=== PATIENT | male | born 1950 | race Caucasian/White ===

== ENCOUNTER → 2021-01-20 13:25 | Outpatient (CLI) | payer MEDICARE, OTHER, SELFPAY ==
--- NOTE | 2021-01-20 | DI.CT.S_ITS ---
PROCEDURE: CT UE LT WO CON INDICATIONS: pain TECHNIQUE: Noncontrast 1-1.5 mm thick sections acquired from the acromioclavicular joint to the inferior scapula, with coronal and sagittal reformatting. COMPARISON: [facility], CR, XR SHOULDER 2+ VIEWS BILATERAL, 12/22/2020, 13:49. FINDINGS: Image quality: Excellent. Bones: No acute osseous fracture or dislocation. Severe degenerative changes are seen at the glenohumeral joint with full-thickness joint space narrowing, subchondral cystic changes, and marginal osteophyte formation. There is remodeling of the glenoid articular surface resulting in approximately 13 degrees of glenoid retroversion relative to the midplane of the scapula at the mid glenoid level. Mild to moderate degenerative changes are seen in the acromioclavicular joint. Degenerative changes are partially imaged in the spine. The visualized ribs are intact. Soft tissues: The rotator cuff musculature is normal in bulk. No large full-thickness retracted rotator cuff tendon tear is seen, although the tendons, ligaments, articular cartilages, and labrum are not well evaluated with CT. Of the included portion of the left lung is clear. IMPRESSION: 1. Severe glenohumeral osteoarthrosis as described above with remodeling of the posterior glenoid resulting in approximately 13 degrees glenoid retroversion relative to the midplane of the scapula at the mid glenoid level. 2. Mild to moderate acromioclavicular osteoarthrosis. Dictated by: Nile Barragan M.D. on 01/20/2021 at 14:10 Approved by: Nile Barragan M.D. on 01/20/2021 at 14:16
== END ==
PROVIDERS: PCP Physician Assistant Medical; Referring Provider Orthopaedic Surgery; Visit Provider Orthopaedic Surgery
DX: M19.012 Primary osteoarthritis, left shoulder (principal); M25.512 Pain in left shoulder
CPT/HCPCS: 73200

== ENCOUNTER → 2021-04-01 08:41 | Outpatient (CLI) | payer MEDICARE, OTHER, SELFPAY ==
[2021-04-01 14:47] LABS: COVID19 -Nasal RAPID Negative (Negative)
== END ==
PROVIDERS: PCP Physician Assistant Medical; Visit Provider Physician Assistant
DX: Z01.812 Encounter for preprocedural laboratory examination (principal); Z20.822 Contact with and (suspected) exposure to COVID-19
CPT/HCPCS: 87635; C9803

== ENCOUNTER 2021-04-02 06:18 | Inpatient (IN) | payer MEDICARE, OTHER, SELFPAY ==
[2021-03-25 12:33] VITALS: BMI 27.6
[2021-04-02] VITALS (13 sets, daily range): BP systolic 99–142; BP diastolic 61–94; PULSE 72–103; RESP 9–18; TEMP 36.1–37; O2SAT 92–96; BMI 27.6
--- NOTE | 2021-04-02 06:00 | DI.RAD.S_ITS ---
PROCEDURE: XR SHOULDER LT MIN 2V INDICATIONS: postop prosthesis placement TECHNIQUE: 2 views of the shoulder were acquired. COMPARISON: None. FINDINGS: Bones: Left shoulder hemiarthroplasty noted with intra-articular drain and overlying subcutaneous air. Prosthetic component in good position. Soft tissues: No suspicious soft tissue calcifications. IMPRESSION: Left shoulder hemiarthroplasty postoperative changes Approved by: Stan Jansen M.D. on 04/02/2021 at 12:06
[2021-04-02] MEDS: VANCOMYCIN 1,000 MG/200 ML PIGGYBACK 200 MG IV ×2 (06:59→19:13)
[2021-04-02] MEDS: CELECOXIB 200 MG CAPSULE PO (07:03)
[2021-04-02] MEDS: ACETAMINOPHEN 325 MG TABLET 975 MG PO ×2 (07:03→22:20)
[2021-04-02] MEDS: PREGABALIN 75 MG CAPSULE PO (07:06)
[2021-04-02] MEDS: LACTATED RINGERS 1,000 ML 42 ML IV ×2 (07:15→09:45)
--- NOTE | 2021-04-02 07:34 | PM.PREOP ---
Pre-operative Note Interval Note History & Physical reviewed/Exam performed by Physician: Yes Changes to H&P: No
--- NOTE | 2021-04-02 07:36 | PM.HP.1 ---
History of Present Illness History of Present Illness Date Patient Seen: 04/02/21 Time Patient Seen: 07:37 Chief complaint: Left Total Shoulder Arthroplasty *OPB* Narrative: 70-year-old gentleman with end-stage arthritic changes to the left shoulder joint causing pain and dysfunction it has been unresponsive to conservative treatment. Due to this fact, patient is interested in total shoulder arthroplasty. Patient History Medical History Arthritis Easy bruisability Fatigue HLD (hyperlipidemia) HTN (hypertension) Kidney stones Obstructive sleep apnea of adult Osteoarthritis Pre-diabetes Snoring Surgical History History of total left hip arthroplasty (2015) History of total right hip arthroplasty (2008) History of vasectomy Hx of appendectomy Hx of cholecystectomy Family & Social History Social History: household members spouse Prior Living Arrangements House Safety & Behavioral: Feels Safe in Current Yes Environment Been Physically Hurt or No Threatened By a Person Suicidal Ideation Description None Suicide Plan Description No Plan Tobacco & Substance use: Smoking Status Never smoker alcohol intake current alcohol intake frequency a few times a month Substance Use Type does not use Meds Home Medications and Allergies Home Medications Medication Instructions Recorded Confirmed Type amlodipine 5 mg tablet 5 mg PO DAILY 11/23/18 04/02/21 History fluticasone propionate 50 2 spray NASAL BID 11/23/18 04/02/21 History mcg/actuation nasal spray,suspension (Allergy Relief (fluticasone)) hydrochlorothiazide 25 mg tablet 25 mg PO DAILY 11/23/18 04/02/21 History loratadine 10 mg capsule 10 mg PO DAILY 11/23/18 04/02/21 History meloxicam 15 mg tablet 15 mg PO BEDTIME 11/23/18 04/02/21 History oqwvvmt-jtjaiftblyfye-hbfnmdlp 250 1 tab PO DAILY PRN 03/25/21 04/02/21 History mg-250 mg-65 mg tablet (Excedrin Extra Strength) atorvastatin 10 mg tablet 10 mg PO BEDTIME 03/25/21 04/02/21 History ezetimibe 10 mg tablet 10 mg PO BEDTIME 03/25/21 04/02/21 History famotidine 20 mg tablet 20 mg PO DAILY 03/25/21 04/02/21 History Allergies Allergy/AdvReac Type Severity Reaction Status Date / Time Ampicillin Allergy Mild Rash Uncoded 03/25/21 13:14 Exam Vital Signs (past 8 hours): - 04/02/21 07:15 Temperature 98.6 F Pulse Rate 72 Respiratory Rate 16 Blood Pressure 139/94 H Pulse Oximetry 96 Oxygen Delivery Method Room Air Narrative Exam Narrative: Decreased range of motion to the left glenohumeral joint with difficulty going 90? of forward flexion and abduction. 15? of external rotation internal rotation to the back pocket. Quite a bit of crepitus with range of motion. No sign of any shoulder instability. No sign of any rotator cuff dysfunction. Assessment & Plan Assessment & Plan narrative: End-stage arthritis to the left shoulder unresponsive to conservative treatment. Patient is interested in proceeding with a total shoulder Arthroplasty. The risk, benefits, alternatives, possible complications, operative course, and postop outcomes were discussed. Complications including but not limiting to bleeding, infection, fracture, nerve injury, continued pain postoperatively or instability postoperatively were discussed in detail. Medical complications including but not limited to deep venous thrombosis event, anesthesia complications with excessive bleeding, vascular events or cardiac events and other possible complications were discussed in detail. Need for postoperative rehabilitation and anticipated hospital stay and clinical course were discussed in detail. Patient acknowledges understanding and elects to proceed with surgery. Time Spent With Patient Critical Care time: I spent a total of [] minutes of critical care time on this patient's care today; this time is exclusive of procedural time.
--- NOTE | 2021-04-02 08:03 | SUR.PREOP ---
Block start time 0741 . Monitoring initiated and maintained throughout procedure. Oxygen and medications given by Dr Garza. Patient remained stable throughout procedure, no adverse reactions noted. Block end time 0750.
--- NOTE | 2021-04-02 08:23 | PM.PROC.1 ---
Procedures Date/Time Date of procedure: 04/02/21 Time of procedure: 07:40 General Procedure description: Ultrasound guided interscalene brachial plexus nerve block for post op pain control after left total shoulder arthroplasty by Dr. Celeste. Risk and benefits of procedure discussed with patient. ASA monitoring applied to patient. O2 given via nasal cannula. 2 mg Versed and 50 mcg fentanyl given for procedural sedation. Skin site was prepped with chlorhexidine and allowed to fully dry. Sterile gloves, mask, hat and probe cover were used to maintain sterility. 2% lidocaine and 30ga needle was used to make a small skin wheal at needle insertion site. Under ultrasound guidance, a 21ga 50mm Pajunk needle was directed into the interscalene groove (middle/anterior scalenes) near the brachial plexus. Patient reported no parasthesias. After negative aspiration, 20 mL 0.5% ropivicaine and 10mg dexamethasone were injected around brachial plexus. Patient tolerated procedure well.
--- NOTE | 2021-04-02 08:29 | SUR.OPER ---
Beach chair with Maquet shoulder positioner. Lower body on padded OR bed. Head in foam padded head cradle, secured with straps. Non-operative arm secured <90 degrees abduction. Pillow under knees. Safety belt at thigh. Cloth tape over blanket over lower legs.
--- NOTE | 2021-04-02 10:13 | P.OP_ITS ---
Operative Date/Time/Diagnoses Date of procedure: 04/02/21 Time of procedure: 10:13 Pre-op diagnosis: Left shoulder arthritis Post-op diagnosis: same Procedure & Clinicians Procedure: Left total shoulder arthroplasty Same procedure as scheduled: Yes Indications: End-stage arthritis left shoulder Surgeon: Eugenio Celeste Retail Sales Assistant: Olivia Beltran Anesthesia Type: General and Peripheral nerve block Operative Notes Findings: end-stage arthritic changes to the glenohumeral joint with no sign of any rotator cuff tearing. Inferior and anterior osteophytes. Complete loss of cartilage around the glenoid and the humerus. No sign of any significant flattening of the humeral head. Some mild posterior wear to the glenoid. Closure Type: primary Specimen(s): none sent Applied: drain(s) and implant(s) (Size 11 stem large glenoid 56 x 22 head) Estimated Blood Loss (mL): 150 Procedure in detail: On date of service, Patient was met in the holding area. The operative site was signed and witnessed by the OR staff. The surgeries once again discussed with the patient and any remaining questions they had were answered fully. Patient was taken back to the operating theater and placed on the operating table in a supine position. Great care was taken to ensure that all bony prominences were properly padded. Patient was then placed into the beach chair position. The head and neck were properly positioned and secured. A timeout was performed verifying patient's name, procedure, and the operative site. The upper extremity was then prepped and draped in the normal sterile fashion. Previously, the bony anatomy and incision were marked out as well as injected with Marcaine with epinephrine. A deltopectoral approach was performed. 10 blade was used to incise the skin and fascial tissue. A deep knife was used to continue sharp dissection until the cephalic vein was visualized. The cephalic vein was dissected free allowing us to expose the deltopectoral interval. This interval was then developed. A Ball elevator was used to free up the deltoid of any scarring both superficially as well as deeply. The vein and the deltoid were taken laterally while the pectoralis was taken medially. This gave us good visualization of the strap muscles. The clavipectoral fascia was removed and the strap muscles were then retracted medially with the pectoralis. This gave us stabilization of the subscapularis. The circumflex vessels were ligated and the subscapularis was sharply excised off the lesser tuberosity and then tagged. Once the subscapularis was released we're able to dislocate the shoulder. Patient had end-stage arthritic changes to the humeral head as well as the glenoid with large osteophytes anterior inferiorly as well as posteriorly. A Ronger was then used to remove the osteophytes. Next, cutting guide was placed and a saw was used to remove the humeral head. Once the head was removed it was templated. A starting awl was then used to find the canal and then the humerus was reamed and broached. Trial stem was placed and a variety of heads were trialed. A protector placed for the osteotomy was then placed and and we turned our attention back to the subscapularis as well as the glenoid. The subscapularis was freed up and a 360? fashion. The degenerative anterior and inferior capsular tissue was removed. This was followed by removing the degenerative labral tissue from around the glenoid as well as the biceps insertion. This gave us good visualization of the glenoid. Glenoid trials were used until we found the appropriate fit and curvature. Next the center hole was drilled followed by reaming of the glenoid. The wound was copiously irrigated after reaming. Next the pegs were drilled and a trial glenoid was impacted into place. Once we were satisfied with the preparation of the glenoid, the final component was cemented into place. This was followed by impaction. We Return to our attention back to the humerus. The protector plate was removed and heads were trialed once again and so we found the appropriate fit. The trials were removed and bone tunnels were made into the humeral neck. #2 FiberWire were passed through the bone tunnels for eventual subscapularis repair. The final stem and head were impacted into place and the shoulder was reduced. It was taken through range of motion and was felt to be stable in both posterior translation as well as external and internal rotation with abduction. The subscapularis was repaired back to the lesser tuberosity through the bone tunnels. This was then reinforced with soft tissue repair. Part of the rotator interval was then closed. A drain was placed and the rest of the wound was closed in a layered fashion. The shoulder was then cleaned dried and dressed and the patient was taken to the PACU in stable condition. Patient will follow our postoperative protocol for total shoulder arthroplasty. Complications: none Post-operative Condition: stable Disposition: Acute Care Plan for aftercare: Patient will be admitted overnight. As long as he is comfortable enough he can go home after surgery.
--- NOTE | 2021-04-02 10:49 | SUR.PHASEI ---
Ancef not given pre-op per Dr Packer. See other anbx
[2021-04-02] MEDS: LACTATED RINGERS 1,000 ML 125 ML IV ×2 (11:43→19:12)
--- NOTE | 2021-04-02 14:17 | PT.IIE ---
Current Diagnoses Pain in right shoulder (04/02/21) Surgery Performed Operation Date: 04/02/21 07:45 Actual Procedures p Total Shoulder Arthroplasty(Left) - Eugenio Celeste MD Medical History (Last Reviewed 04/02/21 @ 07:37 by Eugenio Celeste MD) Arthritis Easy bruisability Fatigue HLD (hyperlipidemia) HTN (hypertension) Kidney stones Obstructive sleep apnea of adult Osteoarthritis Pre-diabetes Snoring Physical Therapy Inpatient Evaluation/Re-Eval M1 PT/OT-IP Prior Functional Status Start: 04/02/21 14:01 Freq: Status: Active Protocol: Document 04/02/21 13:17 MB (Rec: 04/02/21 14:17 MB [id number]) Medical Review Prior Functional Status Medical History Reviewed Yes Diet/Fluid Consistency Regular Communication WNLs Mobility and Gait I, retired Activities of Daily Living and IADL's I Prior Functional Level (Other details) I Social History Household Members spouse Living Arrangements House Number of Floors (Floors) One Floor Employment Status Retired M2 PT-IP Current Condition Start: 04/02/21 14:01 Freq: Status: Active Protocol: Document 04/02/21 13:17 MB (Rec: 04/02/21 14:16 MB [id number]) Physical Therapy Current Condition Current Condition Evaluation Date 04/02/21 Treatment Diagnosis L TSR 04/02/21 Precautions Shoulder Precautions Sling,Pendulums Other Precautions Pt s/p left TSR and provided [facility] Protocol, no pendulums today d/t shoulder still non-sensate, hand exercises only and did demo pendulum, scapular retraction, elbow flexion, extension, pronation and supination Weight Bearing Status Weight Bearing Status Non-Weight Bearing M3 PT-IP Subjective Start: 04/02/21 14:01 Freq: Status: Active Protocol: Document 04/02/21 13:17 MB (Rec: 04/02/21 14:16 MB [id number]) Subjective Physical Therapy Visit Type Type Initial Evaluation Visit Start Time 13:17 Visit Stop Time 13:55 Total Visit Minutes 38 Physical Therapy Visit Comments Patient Goals To go home tomorrow Therapy Pain Assessment Pain Present Pain Present Denied Pain M4 PT-IP Mobility and Gait Start: 04/02/21 14:01 Freq: Status: Active Protocol: Document 04/02/21 13:17 MB (Rec: 04/02/21 14:16 MB [id number]) PT-Bed Mobility Assessment Rolling Type of Rolling Roll to Right Level of Assist Independent Supine to Sit Supine to Sit Independent,Head of Bed Elevated,Bedrails Scooting Scooting to Edge of Bed Standby Assistance PT-Transfer Assessment Sit to and From Stand Sit to and from Stand Contact Guard Assistance Transfer Ability Level of Assist Standby Assistance Comments Mobility Comments L sling donned, SBA for transfer to check to see if pt is dizzy and to check BP and HR. Pt is tachycardic with HR up to 119 BPM before gait and after first gait set BP and HR in right UE: supine 109/65, 95; standing 114/80, 112; standing 1' 111/59, 119. Gait Assessment Gait Gait Assistance Required: Standby Assistance Distance (Feet) 150 Assistive Devices Assistive Device None Gait Deviations General Gait Pattern Within Normal Limits,Wide Based Gait Factors Limiting Gait Function Factors Limiting Gait Function Poor Balance Comments Gait Comments Initally, gait with wide ADOLFO, mild imbalance. After 150' gait with PT pushing IV pole, his balance improves and PT and nsg clear pt to walk pushing the IV pole in the hallway and with nearby. Left sling is donned. His олег increases with increased gait distance. Stair Climbing Assessment Evaluation Level of Assist On Stairs Contact Guard Assistance Devices Stair Climbing Assistive Devices None,Right Railing Technique/Endurance Stair Climbing Direction Ascend and Descend Stair Climbing Technique Step Over Step,Step to Step Number of Steps Climbed 3 Query Text: Stair Climbing Set # Repetitions (reps) 2 Comments Stair Climbing Comments First set, step to step and right rail ascend. Next set, step over step and right rail PT-Balance Assessment Sitting Balance and Reactions Static Sitting Balance Ability Good Dynamic Sitting Balance Ability Good Standing Balance and Reactions Static Standing Balance Ability Good Dynamic Standing Balance Ability Good M5 PT-IP Objective Assessments Start: 04/02/21 14:01 Freq: Status: Active Protocol: Document 04/02/21 13:17 MB (Rec: 04/02/21 14:16 MB [id number]) Orientation Orientation/Cognition Level of Alertness Alert Orientation Name,Age,Birthday,Month,Date, Year,Day of Week,Place, Situation Language Function Ability No Deficits Noted Safety Awareness Understands Safety Issues Memory Description No Deficits Noted Gross Range of Motion Upper Extremity ROM Assessment Bilaterally Impaired Impairments L arm in sling s/p surgery today. No active left elbow flexion, extension, supination or pronation when asked. He has numbness in index finger and thumb. End-range AROM deficits right shoulder, pt with known OA and needing right TSR as well. He is right hand dominant. Lower Extremity ROM Assessment Within Functional Limits Strength Comments Strength Comments Deferred MMT today given multiple lines right UE and left UE just operated upon Sensation Assessment Comments Sensation Comments Numbness right fingers as described above M6 PT-IP Treatment Start: 04/02/21 14:01 Freq: Status: Active Protocol: Document 04/02/21 13:17 MB (Rec: 04/02/21 14:16 MB [id number]) Physical Therapy Treatment Exercises Exercises Shoulder Pendulums,Elbow Flexion/Extension,Wrist ROM, Hand ROM Education Education Provided Precautions,Weight Bearing Status,Post-Op Packet,Safety M7 PT-IP Assessment and Plan Start: 04/02/21 14:01 Freq: Status: Active Protocol: Document 04/02/21 13:17 MB (Rec: 04/02/21 14:16 MB [id number]) PT Summary Assessment and Plan Potential Rehabilitation Potential Excellent Status of Condition at Evaluation Stable Summary Impairments ROM,Strength,Sensation,Bed Mobility,Transfers,Gait Progress Towards Goals Progressing Toward Goals Assessment Summary Pt is a 70 y/o male post-op left TSR today. He is wearing the sling in bed and PT makes sure it is fastened before gait. His is tachycardic today and PT reports this to nursing. His bed, transfer and gait mobility are good. He con't with left shoulder numbness and finger paresthesias post-op. He will benefit from 1 more PT treatment to review post-op exercises again once his left arm is more sensate next date. Nsg cleared him to be up walking with IV pole in hospital. Balance testing if needed tomorrow. Goals Bed Mobility Goal Independent Transfer Goal Independent Gait Goal Independent Gait Distance 200 Other Goals Demo left TSR exercises with I Frequency of Treatment Frequency Of Treatment Once a Day Treatment Plan Physical Therapy Treatment Plan Bed Mobility Training,Transfer Training,Gait Training, Therapeutic Exercise,Balance Retraining,Post Op Education, Discharge Planning, Neuromuscular Re-ed Precautions Shoulder Precautions Sling,Pendulums Recommendations To Nursing Amount of Assist Needed Standby Assistance Discharge Recommendations PT Discharge Recommendations Home with Assistance, Outpatient PT Other Discharge Recommendations He is scheduled for OPPT with [facility] in [place] Transportation Needs at Discharge Private Vehicle
[2021-04-02] MEDS: INFLUENZA HD VACCINE 0.7 ML SYRINGE IM (14:25)
[2021-04-02] MEDS: EZETIMIBE 10 MG TABLET PO (20:56)
[2021-04-02] MEDS: ATORVASTATIN 20 MG TABLET 10 MG PO (20:57)
[2021-04-02] MEDS: MELOXICAM 7.5 MG TABLET 15 MG PO (20:57)
[2021-04-02] MEDS: DOCUSATE 100 MG CAPSULE PO (20:58)
[2021-04-02] MEDS: FLUTICASONE 120 SPRAY/16 GM SPRAY.SUSP NASAL (20:59)
--- NOTE | 2021-04-03 00:43 | PC.NURSE ---
Patient is alert and oriented. Breath sounds CTA with RA sat of 95%. HRR. Denied nausea. BT hypoactive but states he has passed flatus. Denied dysuria, frequency or urgency with urination. Is independent with mobility. Aquacel dressing to left shoulder is intact with small spot of drainage noted; hemovac is intact and compressed. Does have some bruising medial to dressing. States he still has some numbness in fingers of left hand as well as upper/lower arm; good radial pulse and capillary refill. Denied pain. Is wearing a sling to left UE. Bilateral calf SCD's applied once back in bed. Fall risk score is low.
[2021-04-03] MEDS: HYDROCODONE/ACET 5/325 TABLET 2 TAB PO ×2 (04:49→09:04)
[2021-04-03 04:55] VITALS: BP 110/70; PULSE 80; RESP 18; TEMP 36.5; O2SAT 93
[2021-04-03 05:57] LABS: Hematocrit 35.6 % (41-53); Hemoglobin 11.9 g/dL (13.5-17.5); Mean Corpuscular HGB Conc 33.3 % (30-36); Mean Corpuscular Hemoglobin 30.5 PG (26-34); Mean Corpuscular Volume 91.4 fL (80-100); Platelet Count 185 X10^3/uL (150-400); Red Cell Distribution Width 13.8 % (11.6-14.8); White Blood Cell Count 16.2 X10^3/uL (4.5-11.0)
[2021-04-03 08:00] VITALS: BP 115/79; PULSE 84; RESP 16; TEMP 36.2; O2SAT 93
--- NOTE | 2021-04-03 08:17 | PT.IPTN ---
Current Diagnoses Pain in right shoulder (04/02/21) Surgery Performed Operation Date: 04/02/21 07:45 Actual Procedures p Total Shoulder Arthroplasty(Left) - Eugenio Celeste MD Physical Therapy Treatment Note M2 PT-IP Current Condition Start: 04/02/21 14:01 Freq: Status: Active Protocol: Document 04/02/21 13:17 MB (Rec: 04/02/21 14:16 MB [id number]) Physical Therapy Current Condition Current Condition Evaluation Date 04/02/21 Treatment Diagnosis L TSR 04/02/21 Precautions Shoulder Precautions Sling,Pendulums Other Precautions Pt s/p left TSR and provided [facility] Protocol, no pendulums today d/t shoulder still non-sensate, hand exercises only and did demo pendulum, scapular retraction, elbow flexion, extension, pronation and supination Weight Bearing Status Weight Bearing Status Non-Weight Bearing M3 PT-IP Subjective Start: 04/02/21 14:01 Freq: Status: Active Protocol: Document 04/03/21 07:47 SP (Rec: 04/03/21 09:32 SP [id number]) Subjective Physical Therapy Visit Type Type Treatment Note Visit Start Time 07:47 Visit Stop Time 08:17 Total Visit Minutes 30 Notes Vitals taken during tx: supine: 105/74 HR 74 SaO2 93% on RA seated at EOB: 115/79 HR 84 standing front chair post mobility hallway: 111/64 HR 83 , SaO2 88%>93% with breath ed on RA. Number of DIRECTOR OF CLINICAL EDUCATION Visits 1 Physical Therapy Visit Comments Patient Comments Pt willing to work with therapy. Patient Goals Return home with to assist him as needed. Therapy Pain Assessment Pain When Pain Assessed During Mobility Pain Present Pain Present Pain Reported Location L shld Intensity 4 Scale Used Numeric (0 - 10) Description Aching,Tender,With Movement Pain Management Techniques Apply Cold,Re-positioning, Timing of Activity with Medications M4 PT-IP Mobility and Gait Start: 04/02/21 14:01 Freq: Status: Active Protocol: Document 04/03/21 07:47 SP (Rec: 04/03/21 09:32 SP [id number]) PT-Bed Mobility Assessment Supine to Sit Supine to Sit Independent Scooting Scooting to Edge of Bed Independent PT-Transfer Assessment Sit to and From Stand Sit to and from Stand Independent Equipment Orthotic/Prosthetic Devices or Brace: Yes Transfers Transfer Destination Chair Transfer Technique Pt ambulated without AD Transfer Ability Level of Assist Independent Comments Mobility Comments Pt is wearing the sling in bed when arrived. I in bed mobility sup>sit, scoot to EOB . Reviewed don/doff sling and post op ex seated at EOB. Progressed dynamic gait (see gait details) without AD into hallway around nursing station , ascend/descend stairs for approx 230 ft total I without deviations or LOB. Assessed dynamic stationary balance: SLS, tandem EC stable no LOB. DIRECTOR OF CLINICAL EDUCATION identified pt I within facility without AD. Pt is ok to return home with to assist him if needed when medically cleared. Is already set up with outpt therapy. Gait Assessment Gait Gait Assistance Required: Independent Distance (Feet) 230 Able to Maintain Weight Bearing Status Yes During Gait Assistive Devices Assistive Device None Orthotic/Prosthetic Devices or Brace: Yes Gait Deviations General Gait Pattern Within Normal Limits Factors Limiting Gait Function Factors Limiting Gait Function Respiratory Distress Comments Gait Comments Pt normalized ADOLFO during gait this tx 230 ft total in room and progressed around nursing station with no AD able to complete head turns without deviations I. Stair Climbing Assessment Evaluation Level of Assist On Stairs Standby Assistance Devices Stair Climbing Assistive Devices None,Right Railing Technique/Endurance Stair Climbing Direction Ascend and Descend Stair Climbing Technique Step Over Step,Step to Step Number of Steps Climbed 3 Stair Climbing Set # Repetitions (reps) 1 Comments Stair Climbing Comments Receiprocal gait, stable. PT-Balance Assessment Sitting Balance and Reactions Static Sitting Balance Ability Normal Dynamic Sitting Balance Ability Normal Standing Balance and Reactions Static Standing Balance Ability Normal Dynamic Standing Balance Ability Good Device Used no AD Balance Tests Single Limb Standing 30 sec each LE Romberg NBOS and tandem 30sec EC Comments Other Balance Tests/Deviations/Treatment SLS initially 3sec, 7 sec then : progressed 30sec each LE with repetitions, SBA. M5 PT-IP Objective Assessments Start: 04/02/21 14:01 Freq: Status: Active Protocol: Document 04/02/21 13:17 MB (Rec: 04/02/21 14:16 MB [id number]) Orientation Orientation/Cognition Level of Alertness Alert Orientation Name,Age,Birthday,Month,Date, Year,Day of Week,Place, Situation Language Function Ability No Deficits Noted Safety Awareness Understands Safety Issues Memory Description No Deficits Noted Gross Range of Motion Upper Extremity ROM Assessment Bilaterally Impaired Impairments L arm in sling s/p surgery today. No active left elbow flexion, extension, supination or pronation when asked. He has numbness in index finger and thumb. End-range AROM deficits right shoulder, pt with known OA and needing right TSR as well. He is right hand dominant. Lower Extremity ROM Assessment Within Functional Limits Strength Comments Strength Comments Deferred MMT today given multiple lines right UE and left UE just operated upon Sensation Assessment Comments Sensation Comments Numbness right fingers as described above M6 PT-IP Treatment Start: 04/02/21 14:01 Freq: Status: Active Protocol: Document 04/03/21 07:47 SP (Rec: 04/03/21 09:32 SP [id number]) Physical Therapy Treatment Exercises Exercises Shoulder Pendulums,Elbow Flexion/Extension,Wrist ROM, Hand ROM Education Education Provided Precautions,Weight Bearing Status,Post-Op Packet,Safety Other Treatments Other Treatment Performed Education on don/doff sling with arm fully back in sling for support, extra time spent on review PROM of LUE pendulums using RUE seated and standing, then reviewed stand bent over LUE arm dangle for cleaning under LUE in shower with improved understanding end tx. M7 PT-IP Assessment and Plan Start: 04/02/21 14:01 Freq: Status: Active Protocol: Document 04/03/21 07:47 SP (Rec: 04/03/21 09:32 SP [id number]) PT Summary Assessment and Plan Potential Rehabilitation Potential Excellent Status of Condition at Evaluation Stable Summary Impairments ROM,Strength,Sensation,Bed Mobility,Transfers,Gait Progress Towards Goals Progressing Toward Goals Assessment Summary Pt I in all mobility without AD, stable during balance assessments. Pt MET all goals, I. Pt is ok to return home when medically cleared with to assist him, is already set with outpt therapy. Goals Bed Mobility Goal Independent Transfer Goal Independent Gait Goal Independent Gait Distance 200 Other Goals Demo left TSR exercises with I Frequency of Treatment Frequency Of Treatment Once a Day Treatment Plan Physical Therapy Treatment Plan Bed Mobility Training,Transfer Training,Gait Training, Therapeutic Exercise,Balance Retraining,Post Op Education, Discharge Planning, Neuromuscular Re-ed Other Recommendations and Next Treatment Review post op ex. Focus Precautions Shoulder Precautions Sling,Pendulums Recommendations To Nursing Amount of Assist Needed Independent Discharge Recommendations PT Discharge Recommendations Home with Assistance, Outpatient PT Other Discharge Recommendations He is scheduled for OPPT with [facility] in [place] Transportation Needs at Discharge Private Vehicle
[2021-04-03] MEDS: FAMOTIDINE 20 MG TABLET PO (08:58)
[2021-04-03] MEDS: hydroCHLOROthiazide 25 MG TABLET PO (08:58)
[2021-04-03] MEDS: SODIUM CHLORIDE 0.9% FLUSH 10 ML IV (08:58)
[2021-04-03] MEDS: DOCUSATE 100 MG CAPSULE PO (08:58)
[2021-04-03] MEDS: LORATADINE 10 MG TABLET PO (08:58)
--- NOTE | 2021-04-03 09:02 | CM.DANOTE ---
DCP: Case received, EMR reviewed and met with patient. Introduced self and role. Was able to obtain information from patient regarding his baseline activity status prior to surgery. DCP assessment completed with information currently available. Patient is a 70 year old male who admitted yesterday morning to the care of the orthopedic team. PCP: Dr. Monica Hensley. Payer: confirmed: Medicare/[employer]. Patient came to the hospital via private vehicle for a surgical procedure. He had left shoulder arthroplasty. Patient has history of bilateral shoulder pain secondary to arthritis. Met with patient in his room. He had been walking in the hallway prior with the physical therapist. He has his arm currently in a sling. He is alert and oriented, independent at his baseline. He resides in [place] with his spouse, Irasema. 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 He is set up with outpatient P.T. at [facility]. P: DCP to continue to follow. Patient should be able to go home when he is deemed medically stable, P.T. has cleared patient. Diane Choe RN/Nutrition Aide Discharge Planning/Care Management Advanced directive, confirm from FAMILY Start: 04/02/21 12:15 Freq: Q24H Status: Active Protocol: Document 04/02/21 12:15 CM (Rec: 04/02/21 12:29 CM [id number]) Advance Directive, confirm on record Time 12:29 Person contacted Pt Copy received No CM Discharge Assessment Start: 04/03/21 09:00 Freq: Status: Active Protocol: Document 04/03/21 09:01 (Rec: 04/03/21 09:02 [id number]) Discharge Planning Assessment Assigned Repairing Calibrator Diane Choe RN/Nutrition Aide Advance Directives? Yes Advance Directives on File No: Spouse will provide History Provided By Patient,Significant Other, Medical Record Prior Living Arrangements House Household Members spouse Type of transporation used prior to Drives own vehicle admit Independent with ADL's Yes Is patient alert and oriented? Yes Caregiver for Another No Barriers to Discharge No Discharge Plan Home Transportation Arrangement Spouse Referrals Initiated None needed Whiteboard Updated in Patient Room with Yes name and ext. # of Repairing Calibrator Review Status In Process Next Review Type Continued Stay Review Pre-Anesthesia Assessment Start: 03/25/21 12:33 Freq: Status: Complete Protocol: Document 03/25/21 12:33 CAB (Rec: 03/25/21 13:38 [facility] [id number]) Pre-Anesthesia Assessment Patient Information Reviewed Via Phone Assessment Assessment Completed With Patient Diagnostic Results BMP/CMP,CBC Comment Outside labs/EKG scanned, COVID screen @ [facility] 04/01/21 Primary Care Provider Monica Hensley Medical Clearance Received Yes Seen Specialist in Last 12 Months Yes Specialist Seen Orthopedist Comment PCP clearance scanned Primary Language Yemeni Lead Software Qa Engineer Required No Height 5 ft 9.5 in Weight 190 lb Body Mass Index (BMI) 27.6 Hearing Ability Normal Visual Assist Glasses Dentition Type Teeth, Natural Present,Dental Implants Barriers to Learning None Hx Anesthesia Reactions Yes: Continuous vomiting s/p appendectomy 1960 Additional comment IRA, mild per pt, no CPAP Hx Family Anesthesia Reaction No Hx Malignant Hyperthermia No Hx Blood Transfusions No Anesthesia Review Requested No alcohol intake current alcohol intake frequency a few times a month Smoking Status Never smoker Substance Use Type does not use Pain Present Pain Reported Musculoskeletal Symptoms Back Pain,Joint Pain,Limited Range of Motion History of Falling (Recent or History of No ) Patient is completely paralyzed or No completely immobile Mental Status Oriented to own ability Is patient on oxygen? No Does patient have JAMES/SOB No Hx Sleep Apnea Yes: Intolerant to CPAP CPAP/BIPAP use prescribed not used Currently Taking a Beta Kat No Can You Climb a Flight of Stairs Without Yes SOB Hx Chest Pain No Hx SOB No Hx Syncope or Dizziness Yes: Syncope left hip surgery '16 Anti-Coagulant Therapy No Has a Senior Litigation Paralegal No Cardiac Testing No Hx Pacemaker/ICD No Pacemaker Rep Required? No Diet Type At Home Regular dysphagia No Gastrointestinal Symptoms Reflux Bladder Pattern Frequency,Urgency Urinary Catheter Present No Hx Urinary Self Catheterization No Diabetes No: Pre-diabetes Presence of External or Internal Medical Yes: Bilat hip prosthesis Devices Have you had any close contact with No someone diagnosed with COVID-19? Marital Status Lives With spouse Prior Living Arrangements House Number of Floors (Floors) Two Floors Support System Spouse Does the Patient Have Assistance After Yes Surgery Patient Discharge Plan Description Return Home Comment Pt advised 2 day length of stay per surgeon Feels Safe in Current Environment Yes Been Physically Hurt or Threatened By a No Person in Current Environment Do you have thoughts of harming yourself None or others? Are you currently considering suicide? No Do you have a plan to hurt yourself or No Plan others? Do You Have Any Spiritual Beliefs That No May Affect Your HC Choices? Do You Have Any Cultural Practices That No May Affect Your HC Choices? Comment Oriental Orthodox Who Can We Speak to About Patient's Care Family, friends Identifying Code for Release of Patient Declines to issue Information Health Care Proxy/Next of Kin Irasema () Health Care Proxy Emergency Contact Name Irasema () Emergency Contact Advance Directives? No Power of Weld Fitter Yes Power of Weld Fitter Name Irasema () Power of Weld Fitter PAC Instructions Medications to take/avoid, Nasal antibiotic,No ETOH/ petroleum product on skin DOS, NPO,Post-op transportation,Pre -surgical wash,Sturdy shoes/ comfortable clothes,Do not bring valuables and remove jewelry
[2021-04-03] MEDS: FLUTICASONE 120 SPRAY/16 GM SPRAY.SUSP NASAL (09:04)
--- NOTE | 2021-04-03 13:17 | P.DS_ITS ---
History of Present Illness History of Present Illness Date Patient Seen: 04/03/21 Time Patient Seen: 13:17 Chief complaint: Left shoulder pain status post left TSA Narrative: The patient is complaining of mild pain this afternoon. He has worked with physical therapy. He denies fevers, chills, night sweats. He denies numbness or tingling. He denies nausea or vomiting. Overall he is feeling well and would like to be discharged home today. Discharge Providers Provider Date of admission: 04/02/21 06:18 Discharge Date: 04/03/21 Primary care physician: Monica Hensley PA-C Consults: 04/02/21 07:14 Consult to Respiratory Therapy Evaluate & Treat Comment: Physician Instructions: Evaluate and treat 04/02/21 07:25 Consult to Anesthesiology Routine Comment: Consulting Provider: Anesthesiologist Reason for consultation: Post operative pain managment 04/02/21 10:11 Consult to Discharge Planning Routine Comment: Consult to Physical Therapy Evaluate & Treat Comment: Physician Instructions: Evaluate and Treat Consult to Respiratory Therapy Evaluate & Treat Comment: Physician Instructions: Evaluate and treat Discharge provider: Olivia Beltran PA-C Summary Hospital Course Discharge Diagnosis: Left shoulder osteoarthritis Hospital Course: Procedure: Left total shoulder arthroplasty Same procedure as scheduled: Yes Indications: End-stage arthritis left shoulder Surgeon: Eugenio Celeste Corporate Relations Manager: Olivia Beltran Anesthesia Type: General and Peripheral nerve block Operative Notes Findings: end-stage arthritic changes to the glenohumeral joint with no sign of any rotator cuff tearing.? Inferior and anterior osteophytes.? Complete loss of cartilage around the glenoid and the humerus.? No sign of any significant flattening of the humeral head.? Some mild posterior wear to the glenoid. Closure Type: primary Specimen(s): none sent Applied: drain(s) and implant(s) (Size 11 stem large glenoid 56 x 22 head) Estimated Blood Loss (mL): 150 Status at Discharge Cognitive/behavioral status at discharge: oriented Functional status at discharge: uses cane/walker Overall status at discharge: patient is progressing back to baseline Exam Vital Signs (past 8 hours): - 04/03/21 08:00 Temperature 97.2 F L Pulse Rate 84 Respiratory Rate 16 Blood Pressure 115/79 Pulse Oximetry 93 Oxygen Delivery Method Room Air Oxygen Flow Rate 0 Narrative Exam Narrative: Pleasant 70-year-old sitting comfortably in his chair, no acute distress. Incision is clean, dry, intact. Sling is in place. is mild some cutaneous blood blisters from the iron Man as well as a very small skin tear on the mid aspect of the upper arm. No surrounding erythema, no induration, no hieu pus. Bilateral distally neurovascularly intact. Bilateral upper motor functions grossly intact. Objective Labs Result Diagrams: 04/03/21 05:30 Labs: Laboratory Results - last 24 hr 04/03/21 05:30 WBC 16.2 H RBC 3.90 L Hgb 11.9 L Hct 35.6 L MCV 91.4 MCH 30.5 MCHC 33.3 RDW 13.8 Plt Count 185 PFSH Medical History Arthritis Easy bruisability Fatigue HLD (hyperlipidemia) HTN (hypertension) Kidney stones Obstructive sleep apnea of adult Osteoarthritis Pre-diabetes Snoring Surgical History History of total left hip arthroplasty (2015) History of total right hip arthroplasty (2008) History of vasectomy Hx of appendectomy Hx of cholecystectomy Social History household members: spouse Smoking Status: Never smoker alcohol intake: current Discharge Assessment & Plan Assessment and Plan Assessment: Stable status post left total shoulder arthroplasty Plan of Treatment: Patient is doing well status post left total shoulder arthroplasty yesterday. He will be discharged home today with his . He will continue to work on home exercises from the therapist. Use Tylenol [id number], continue meloxicam for pain. He can also add on [place] as needed for moderate to severe pain. He understands his maximum amount of Tylenol is 3000 mg per day. Return to see Dr. Celeste in 10-14 days, or sooner as needed. Discharge Plan Discharge Plan Patient Disposition: Home Discharge orders & Medications Prescriptions: New acetaminophen 500 mg capsule 500 mg PO Q4H MDD 3,000mg/day from all sources PRN (Reason: pain) Qty: 90 RF: 0 hydrocodone-acetaminophen 5-325 mg Tablet See Rx Instructions .ROUTE .COMPLEX MDD max 3000mg acetaminophen/day PRN (Reason: Pain, Moderate (4-6)) Qty: 42 RF: 0 docusate sodium 100 mg Capsule 100 mg PO BID PRN (Reason: Constipation from the narcotic pain meds) Qty: 20 RF: 0 Continued atorvastatin 10 mg Tablet 10 mg PO BEDTIME RF: 0 famotidine 20 mg Tablet 20 mg PO DAILY RF: 0 ezetimibe 10 mg Tablet 10 mg PO BEDTIME RF: 0 Excedrin Extra Strength 250-250-65 mg Tablet 1 tab PO DAILY PRN (Reason: Pain) RF: 0 fluticasone propionate [Allergy Relief (fluticasone)] 50 mcg/actuation sp ray,suspension 2 spray NASAL BID RF: 0 loratadine 10 mg capsule 10 mg PO DAILY RF: 0 meloxicam 15 mg tablet 15 mg PO BEDTIME RF: 0 hydrochlorothiazide 25 mg tablet 25 mg PO DAILY RF: 0 amlodipine 5 mg tablet 5 mg PO DAILY RF: 0 Follow up/Referrals: Eugenio Celeste MD [Physician] - (10-14 days for postoperative visit) Monica Hensley PA-C [Primary Care Provider] - Diet/Activity/Treatments Diet: Diet as Tolerated and Regular Activity: Use sling at all times Cold/Heat Therapy: Use ice as needed for pain Other treatments: Use [id number] Tylenol for zdzg-[id number] pain -use hydrocodone/acetaminophen 1-2 tabs every 4 hours as needed for moderate to severe pain Max 3000 mg of acetaminophen from all sources per day Skin/Wound/Dressing Care Report to your healthcare provider any signs of infection, such as:: chills, fever, night sweats, unusual drainage and unusual redness Dressing: Keep dressing in place -call the office if dressing becomes wet, swell, saturated Visit Report/Discharge Packet Instructions: How to Use a Sling, DI for Constipation, How to Prevent Falls, DI for Taking Pain Medication, DI for Shoulder Replacement Stand Alone Forms: Surgery Discharge Discharge Data Primary Care Provider: Monica Hensley VTE Deep Vein Thrombosis/Pulmonary Embolism Present on Admission: No
--- NOTE | 2021-04-03 14:28 | PC.NURSE ---
Discharge: Feels ready to d/c to home. Seen by PT and given there instructions. Seen by PA and given d/c instructions. Pt has been up and walking in the hallways. Gait steady. Vds w/out problems. Diet tolerated w/out problems. D/c instructions reviewed and understood. Questions answered. Pt d/c home via auto w/family.
== END 2021-04-03 14:00 | disposition home or self-care (01) | DRG 483 ==
LOC: OR 06:19 → AC 06:20
PROVIDERS: Admitting Provider Orthopaedic Surgery; PCP Physician Assistant Medical; Referring Provider Orthopaedic Surgery; Visit Provider Orthopaedic Surgery
PROC: 0RRK0JZ Replacement of Left Shoulder Joint with Synthetic Substitute, Open Approach (ICD-10-PCS; CPT 23472; principal; 2021-04-02 07:45)
DX: M19.012 Primary osteoarthritis, left shoulder (principal); M25.712 Osteophyte, left shoulder; E78.5 Hyperlipidemia, unspecified; I10 Essential (primary) hypertension; Z20.822 Contact with and (suspected) exposure to COVID-19; Z23 Encounter for immunization
CPT/HCPCS: 36415; 64415; 73030; 85027; 87635; 90471; 90662; 97110; 97112; 97116; 97161; C1776; C9803; A9270; J1100; J2250; J2405; J2704; J3010

== ENCOUNTER → 2021-08-17 15:35 | Outpatient (CLI) | payer MEDICARE, OTHER, SELFPAY ==
[2021-04-02 11:51] VITALS: BMI 27.6
--- NOTE | 2021-08-17 15:37 | DI.CT.S_ITS ---
PROCEDURE: CT UE RT WO CON INDICATIONS: Primary osteoarthritis, right shoulder TECHNIQUE: Noncontrast 1-1.5 mm thick sections acquired from the acromioclavicular joint to the inferior scapula, with coronal and sagittal reformatting. COMPARISON: [facility] [place], CR, XR SHOULDER 2+ VIEWS BILATERAL, 12/22/2020, 13:49. FINDINGS: Image quality: Some images are degraded by motion artifact. Bones: No acute, displaced fracture. Moderate to advanced degeneration of the glenohumeral articulation with fibrocystic change, osteophytosis, and joint space loss. Mild to moderate narrowing of the AC joint degeneration with osteophytosis. Prominent undersurface osteophytosis of the distal clavicle. Soft tissues: No significant abnormality. IMPRESSION: Right shoulder degeneration as detailed above. Dictated by: Travis Maza M.D. on 08/17/2021 at 16:48 Approved by: Travis Maza M.D. on 08/17/2021 at 16:51
== END ==
PROVIDERS: PCP Physician Assistant Medical; Referring Provider Orthopaedic Surgery; Visit Provider Orthopaedic Surgery
DX: M19.011 Primary osteoarthritis, right shoulder (principal)
CPT/HCPCS: 73200

== ENCOUNTER → 2021-09-10 10:53 | Outpatient (CLI) | payer OTHER, MEDICARE, SELFPAY ==
[2021-04-02 11:51] VITALS: BMI 27.6
--- NOTE | 2021-09-10 | DI.MRI.S_ITS ---
PROCEDURE: MR CERVICAL SPINE WO CON INDICATIONS: Cervicalgia TECHNIQUE: Noncontrast sagittal T1 spin echo and T2 fast spin echo, sagittal STIR, foraminal oblique sagittal T2 fast spin echo, and axial gradient echo or T2 fast spin echo through the cervical spine. COMPARISON: None. FINDINGS: Image quality: Excellent. Alignment and Curvature: There is normal bony alignment. Bone Marrow: Marrow demonstrates normal overall signal. Spinal Cord: Visualized spinal cord has normal size and signal. No cerebellar tonsillar herniation. Paraspinous Soft Tissues: No paravertebral masses. Prevertebral soft tissues are normal in thickness. C2-C3: Normal appearance. C3-C4: Normal appearance. C4-C5: Normal appearance. C5-C6: Disc space narrowing and posterior disc osteophyte complex is eccentric to the left with hypertrophic left uncovertebral joint resulting in mild central but to severe left foraminal stenosis. C6-C7: Disc is bases maintained. Hypertrophic left uncovertebral joint results in severe left neural foraminal stenosis. No central or right foraminal stenosis. C7-T1: Normal appearance. IMPRESSION: 1. Multilevel degenerative disc disease and arthropathy results in severe left foraminal stenosis at C5-6 and C6-7. No significant central stenosis or cord compression. Approved by: Stan Jansen M.D. on 09/10/2021 at 13:57
== END ==
PROVIDERS: PCP Physician Assistant Medical; Referring Provider Physical Medicine & Rehabilitation Pain Medicine; Visit Provider Physical Medicine & Rehabilitation Pain Medicine
DX: M50.322 Other cervical disc degeneration at C5-C6 level (principal); M48.02 Spinal stenosis, cervical region; M47.812 Spondylosis without myelopathy or radiculopathy, cervical region
CPT/HCPCS: 72141

== ENCOUNTER → 2022-03-02 07:01 | Outpatient (CLI) | payer MEDICARE, OTHER, SELFPAY ==
[2021-04-02 11:51] VITALS: BMI 27.6
--- NOTE | 2022-03-02 | DI.CT.S_ITS ---
PROCEDURE: CT SHOULDER RIGHT WITHOUT CON INDICATIONS: Primary osteoarthritis, right shoulder TECHNIQUE: Noncontrast 1-1.5 mm thick sections acquired from the acromioclavicular joint to the inferior scapula, with coronal and sagittal reformatting. COMPARISON: None. FINDINGS: Image quality: Excellent. Bones: Moderate acromioclavicular joint osteoarthritic changes are seen with joint space narrowing, subchondral sclerosis, and inferior marginal osteophyte formation depressing the musculotendinous junction of supraspinatus. Severe glenohumeral joint osteoarthritic changes are seen with near complete loss of joint space, extensive subchondral sclerosis and cyst formation and prominent downward osteophyte formation. No fracture or dislocation. No suspicious intraosseous lesion. Visualized right upper ribs are intact. Soft tissues: There is no significant joint effusion. Small corticated calcifications are noted in posterior aspect of glenohumeral joint space and measures up to 7 mm in length and may represent intra-articular loose bodies. No full-thickness rotator cuff tendon rupture. No significant muscle atrophy is seen on sagittal images. No abnormal soft tissue calcifications. Visualized right lung field is clear. IMPRESSION: 1. Severe glenohumeral joint osteoarthritis and moderate acromioclavicular joint osteoarthritis. No fracture or dislocation. No suspicious bony lesion. 2. No full-thickness rotator cuff tendon rupture. No abnormal soft tissue calcifications. No significant joint effusion . Possible small intra-articular loose bodies within glenohumeral joints. Dictated by: Weston Hodges M.D. on 03/02/2022 at 10:01 Approved by: Weston Hodges M.D. on 03/02/2022 at 10:17
== END ==
PROVIDERS: PCP Physician Assistant Medical; Referring Provider Orthopaedic Surgery; Visit Provider Orthopaedic Surgery
DX: M19.011 Primary osteoarthritis, right shoulder (principal)
CPT/HCPCS: 73200

== ENCOUNTER → 2022-03-02 07:11 | Outpatient (CLI) | payer MEDICARE, OTHER, SELFPAY ==
[2021-04-02 11:51] VITALS: BMI 27.6
[2022-03-02 08:32] LABS: Add Manual Diff / Slide Review NO; Basophils Absolute Auto 0 /uL (0-100); Basophils Percent Auto 0.6 % (0-2); Eosinophils Absolute Auto 300 /uL (0-450); Eosinophils Percent Auto 3.5 % (2-4); Hematocrit 44.6 % (41-53); Hemoglobin 14.9 g/dL (13.5-17.5); Lymphocytes Absolute Auto 1200 /uL (1100-4500); Mean Corpuscular HGB Conc 33.4 % (30-36); Mean Corpuscular Hemoglobin 28.9 PG (26-34); Mean Corpuscular Volume 86.5 fL (80-100); Monocytes Absolute Auto 800 /uL (0-900); Monocytes Percent Auto 11.3 % (3-14); Neutrophils Absolute Auto 5100 /uL (1500-7000); Neutrophils Percent Auto 68.6 % (50-75); Platelet Count 226 X10^3/uL (150-400); Red Blood Cell Count 5.16 X10^6/uL (4.5-5.9); Red Cell Distribution Width 15.1 % (11.6-14.8); White Blood Cell Count 7.4 X10^3/uL (4.5-11.0)
[2022-03-02 08:42] LABS: Prothrombin Time 11.9 SECONDS (10.1-12.7)
[2022-03-02 08:44] LABS: PTT Partial Thromboplastin Tim 33 SECONDS (26-36)
[2022-03-02 09:07] LABS: BUN Creatinine Ratio 19.4 (6-22); Blood Urea Nitrogen 28 mg/dL (9-20); Calcium 9.2 mg/dL (8.4-10.2); Carbon Dioxide 29 mmol/L (22-32); Chloride 103 mmol/L (98-107); Estimated Glomerular Filt Rate 52 mL/min (>60); Glucose 75 mg/dL (80-110); HEMOLYSIS < 15 (0-50); Potassium 3.4 mmol/L (3.4-5.1); Sodium 140 mmol/L (137-145)
== END ==
PROVIDERS: PCP Physician Assistant Medical; Referring Provider Orthopaedic Surgery; Visit Provider Orthopaedic Surgery
DX: Z01.818 Encounter for other preprocedural examination (principal); Z51.81 Encounter for therapeutic drug level monitoring; Z01.812 Encounter for preprocedural laboratory examination; M19.011 Primary osteoarthritis, right shoulder
CPT/HCPCS: 36415; 73200; 80048; 85025; 85610; 85730; 93005

== ENCOUNTER → 2022-03-24 09:46 | Outpatient (CLI) | payer MEDICARE, OTHER, SELFPAY ==
[2021-04-02 11:51] VITALS: BMI 27.6
[2022-03-24 10:53] LABS: COVID19 -Nasal RAPID Negative (Negative)
== END ==
PROVIDERS: PCP Physician Assistant Medical; Referring Provider Orthopaedic Surgery; Visit Provider Orthopaedic Surgery
DX: Z20.822 Contact with and (suspected) exposure to COVID-19 (principal)
CPT/HCPCS: 87635; C9803

== ENCOUNTER 2022-03-25 06:00 | Day surgery (SDC) | payer MEDICARE, OTHER, SELFPAY ==
[2021-04-02 11:51] VITALS: BMI 27.6
[2022-03-17 12:28] VITALS: BMI 27.2
[2022-03-25] VITALS (14 sets, daily range): BP systolic 99–146; BP diastolic 70–87; PULSE 74–104; RESP 10–18; TEMP 35.6–36.5; O2SAT 89–98; BMI 27.2; BMI 27.8
[2022-03-25] MEDS: LACTATED RINGERS 1,000 ML 42 ML IV ×2 (07:21→10:04)
--- NOTE | 2022-03-25 07:32 | PM.PREOP ---
Pre-operative Note Interval Note History & Physical reviewed/Exam performed by Physician: Yes Changes to H&P: No
--- NOTE | 2022-03-25 07:38 | SUR.PREOP ---
Block start time [0725] . safty pause , Monitoring initiated and maintained throughout procedure. Oxygen and medications given per anesthesiologist instructions. Patient remained stable throughout procedure, no adverse reactions noted. Block end time [0735].
[2022-03-25] MEDS: GENTAMICIN 360 MG in SODIUM CHLORIDE 0.9% 100 ML 109 MG IV (07:59)
[2022-03-25] MEDS: EPINEPHrine 1 MG/ML SUBCUT (08:32)
[2022-03-25] MEDS: LIDOCAINE 1% 20 ML INJ (08:32)
--- NOTE | 2022-03-25 08:37 | SUR.OPER ---
Beach chair with skytron shoulder positioner. Lower body on padded OR bed. Head in foam padded head cradle, secured with straps. Non-operative arm secured <90 degrees abduction. Pillow under knees. Safety belt at thigh. Cloth tape over blanket over lower legs.
--- NOTE | 2022-03-25 10:35 | DI.RAD.S_ITS ---
PROCEDURE: XR SHOULDER RT MIN 2V INDICATIONS: Status post total shoulder TECHNIQUE: 2 views of the shoulder were acquired. COMPARISON: [facility], CR, XR SHOULDER LT MIN 2V, 04/02/2021, 11:09. FINDINGS: Bones: Right shoulder hemiarthroplasty noted with soft tissue drain and postprocedural soft tissue air. AC joint hypertrophy noted. Soft tissues: No suspicious soft tissue calcifications. IMPRESSION: Right shoulder hemiarthroplasty postoperative changes Approved by: Stan Jansen M.D. on 03/25/2022 at 11:38
--- NOTE | 2022-03-25 10:37 | PM.OP.1 ---
Operative Date/Time/Diagnoses Date of procedure: 03/25/22 Time of procedure: 08:00 Pre-op diagnosis: Right end-stage shoulder arthritis Post-op diagnosis: same Procedure & Clinicians Procedure: Right shoulder hemiarthroplasty Same procedure as scheduled: No (Patient was scheduled for total shoulder arthroplasty ) Indications: Right shoulder arthritis Surgeon: Eugenio Celeste Prop And Effects Designer: Olivia Beltran Anesthesia Type: General and Peripheral nerve block Operative Notes Findings: End-stage arthritis to the glenohumeral joint. Signs of osteophytes around the humeral head and neck. No sign of any rotator cuff tears. No sign of any high-riding humeral head or rotator cuff arthropathy. Closure Type: primary Applied: implant(s) (53 x 20 humeral head. Stem less insertion with a medium cage screw.) Estimated Blood Loss (mL): 100 Procedure in detail: On date of service, Patient was met in the holding area. The operative site was signed and witnessed by the OR staff. The surgeries once again discussed with the patient and any remaining questions they had were answered fully. Patient was taken back to the operating theater and placed on the operating table in a supine position. Great care was taken to ensure that all bony prominences were properly padded. Patient was then placed into the beach chair position. The head and neck were properly positioned and secured. A timeout was performed verifying patient's name, procedure, and the operative site. The upper extremity was then prepped and draped in the normal sterile fashion. Previously, the bony anatomy and incision were marked out as well as injected with Marcaine with epinephrine. A deltopectoral approach was performed. 10 blade was used to incise the skin and fascial tissue. A deep knife was used to continue sharp dissection until the cephalic vein was visualized. The cephalic vein was dissected free allowing us to expose the deltopectoral interval. This interval was then developed. A Ball elevator was used to free up the deltoid of any scarring both superficially as well as deeply. The vein and the deltoid were taken laterally while the pectoralis was taken medially. This gave us good visualization of the strap muscles. The clavipectoral fascia was removed and the strap muscles were then retracted medially with the pectoralis. This gave us stabilization of the subscapularis. The circumflex vessels were ligated and the subscapularis was sharply excised off the lesser tuberosity and then tagged. Once the subscapularis was released we're able to dislocate the shoulder. Patient had end-stage arthritic changes to the humeral head as well as the glenoid with large osteophytes anterior inferiorly as well as posteriorly. A Ronger was then used to remove the osteophytes. See findings above for descriptions of the humeral head and glenoid. Next, cutting guide was placed and a saw was used to remove the humeral head. Once the head was removed it was templated. A 53 x 20 head gave us the best coverage. We are planning on doing a stem less humeral head. Depth of the cage screw was measured and a medium was the best fit. A 53mm provided the best coverage. The subscapularis was freed up and a 360? fashion. The degenerative anterior and inferior capsular tissue was removed. This was followed by removing the degenerative labral tissue from around the glenoid as well as the biceps insertion. Retractors were used to protect the axillary nerve while we remove the degenerative capsular and labral tissue. This gave us good visualization of the glenoid. Glenoid trials were used until we found the appropriate fit and curvature. A large glenoid provided the best fit. The center hole was drilled followed by reaming of the glenoid. The wound was copiously irrigated after reaming. Next the pegs were drilled and a trial glenoid was impacted into place. Once we were satisfied with the preparation of the glenoid, the final component was cemented into place. This was followed by impaction. Despite multiple attempts at impaction had difficulty getting a secure fit of the glenoid. Seemed to be too much motion at the glenoid implant. Concerns that this would come loose over time and cause additional issues. Due to this fact it was felt it was safest to remove the glenoid component and just replace the humeral side. We Return to our attention back to the humerus. The protector plate was removed and heads were trialed once again until we found the appropriate fit. Once again the 53 x 20 head provided the best coverage as well as stability to the glenohumeral joint. Trials were removed and bone tunnels were made into the humeral neck. #2 FiberWire were passed through the bone tunnels for eventual subscapularis repair. The final stem and head were impacted into place and the shoulder was reduced. It was taken through range of motion and was felt to be stable in both posterior translation as well as external and internal rotation with abduction. The subscapularis was repaired back to the lesser tuberosity through the bone tunnels. This was then reinforced with soft tissue repair. Part of the rotator interval was then closed. A drain was placed and the rest of the wound was closed in a layered fashion. The shoulder was then cleaned dried and dressed and the patient was taken to the PACU in stable condition. Patient will follow our postoperative protocol for total shoulder arthroplasty. Complications: other (Issues getting a secure fixation of the glenoid so the glenoid component eventually was removed.) Post-operative Condition: stable Disposition: PACU Plan for aftercare: Patient will follow our postoperative protocol for total shoulder arthroplasty
[2022-03-25] MEDS: LACTATED RINGERS 1,000 ML 125 ML IV ×3 (12:23→20:35)
--- NOTE | 2022-03-25 13:46 | PM.OP.1 ---
Operative Date/Time/Diagnoses Date of procedure: 03/25/22 Time of procedure: 12:00 Pre-op diagnosis: Right shoulder arthritis Post-op diagnosis: same Procedure & Clinicians Procedure: Right total shoulder arthroplasty Same procedure as scheduled: Yes Indications: Right shoulder end-stage arthritis Surgeon: Eugenio Celeste Medical Radiation Dosimetrist: Olivia Beltran Anesthesia Type: General and Peripheral nerve block Operative Notes Findings: End-stage arthritis to the glenohumeral joint. No sign of any significant rotator cuff pathology. Closure Type: primary Applied: other (Size 6 stem, small glenoid, 48 x 19 head) Estimated Blood Loss (mL): 50 Procedure in detail: On date of service, Patient was met in the holding area. The operative site was signed and witnessed by the OR staff. The surgeries once again discussed with the patient and any remaining questions they had were answered fully. Patient was taken back to the operating theater and placed on the operating table in a supine position. Great care was taken to ensure that all bony prominences were properly padded. Patient was then placed into the beach chair position. The head and neck were properly positioned and secured. A timeout was performed verifying patient's name, procedure, and the operative site. The upper extremity was then prepped and draped in the normal sterile fashion. Previously, the bony anatomy and incision were marked out as well as injected with Marcaine with epinephrine. A deltopectoral approach was performed. 10 blade was used to incise the skin and fascial tissue. A deep knife was used to continue sharp dissection until the cephalic vein was visualized. The cephalic vein was dissected free allowing us to expose the deltopectoral interval. This interval was then developed. A Ball elevator was used to free up the deltoid of any scarring both superficially as well as deeply. The vein and the deltoid were taken laterally while the pectoralis was taken medially. This gave us good visualization of the strap muscles. The clavipectoral fascia was removed and the strap muscles were then retracted medially with the pectoralis. This gave us stabilization of the subscapularis. The circumflex vessels were ligated and the subscapularis was sharply excised off the lesser tuberosity and then tagged. Once the subscapularis was released we're able to dislocate the shoulder. Patient had end-stage arthritic changes to the humeral head as well as the glenoid with large osteophytes anterior inferiorly as well as posteriorly. A Ronger was then used to remove the osteophytes. See findings above for descriptions of the humeral head and glenoid. Next, cutting guide was placed and a saw was used to remove the humeral head. Once the head was removed it was templated. A 48x19 head gave us the best coverage. A starting awl was then used to find the canal and then the humerus was reamed and broached. Trial stem was placed and a variety of heads were trialed. A size 6 stem gave us the best fit. Protector placed for the osteotomy was then placed and and we turned our attention back to the subscapularis as well as the glenoid. The subscapularis was freed up and a 360? fashion. The degenerative anterior and inferior capsular tissue was removed. This was followed by removing the degenerative labral tissue from around the glenoid as well as the biceps insertion. Retractors were used to protect the axillary nerve while we remove the degenerative capsular and labral tissue. This gave us good visualization of the glenoid. Glenoid trials were used until we found the appropriate fit and curvature. A small glenoid provided the best fit. The center hole was drilled followed by reaming of the glenoid. The wound was copiously irrigated after reaming. Next the pegs were drilled and a trial glenoid was impacted into place. Once we were satisfied with the preparation of the glenoid, the final component was cemented into place. This was followed by impaction. We Return to our attention back to the humerus. The protector plate was removed and heads were trialed once again until we found the appropriate fit. Once again the 48x19 head provided the best coverage as well as stability to the glenohumeral joint. Trials were removed and bone tunnels were made into the humeral neck. #2 FiberWire were passed through the bone tunnels for eventual subscapularis repair. The final stem and head were impacted into place and the shoulder was reduced. It was taken through range of motion and was felt to be stable in both posterior translation as well as external and internal rotation with abduction. The subscapularis was repaired back to the lesser tuberosity through the bone tunnels. This was then reinforced with soft tissue repair. Part of the rotator interval was then closed. A drain was placed and the rest of the wound was closed in a layered fashion. The shoulder was then cleaned dried and dressed and the patient was taken to the PACU in stable condition. Patient will follow our postoperative protocol for total shoulder arthroplasty. Complications: none Post-operative Condition: stable Disposition: Acute Care Plan for aftercare: Patient follow our postoperative protocol for total shoulder arthroplasty
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
[2022-03-25] MEDS: FLUTICASONE 120 SPRAY/16 GM SPRAY.SUSP NASAL (20:33)
[2022-03-25] MEDS: MELOXICAM 7.5 MG TABLET 15 MG PO (20:33)
[2022-03-25] MEDS: EZETIMIBE 10 MG TABLET PO (20:34)
[2022-03-25] MEDS: ATORVASTATIN 20 MG TABLET 10 MG PO (20:34)
[2022-03-25] MEDS: MAGNESIUM HYDROXIDE 30 ML UDC PO (20:35)
[2022-03-25] MEDS: VANCOMYCIN 1,000 MG/200 ML PIGGYBACK 200 MG IV (23:42)
[2022-03-26 00:07] VITALS: BP 116/69; PULSE 95; RESP 18; TEMP 35.9; O2SAT 93
[2022-03-26] MEDS: OXYCODONE IR 10 MG TABLET PO ×3 (05:21→12:54)
[2022-03-26 05:29] VITALS: BP 115/72; PULSE 99; RESP 16; TEMP 36.8; O2SAT 93
[2022-03-26] MEDS: SODIUM CHLORIDE 0.9% FLUSH 10 ML IV ×2 (05:30→08:47)
[2022-03-26 07:07] LABS: Hematocrit 36.2 % (41-53); Mean Corpuscular HGB Conc 33.1 % (30-36); Mean Corpuscular Hemoglobin 28.8 PG (26-34); Mean Corpuscular Volume 87.1 fL (80-100); Platelet Count 183 X10^3/uL (150-400); Red Blood Cell Count 4.16 X10^6/uL (4.5-5.9); Red Cell Distribution Width 15.3 % (11.6-14.8)
[2022-03-26] MEDS: FAMOTIDINE 20 MG TABLET PO (08:47)
[2022-03-26] MEDS: hydroCHLOROthiazide 25 MG TABLET PO (08:47)
[2022-03-26] MEDS: DOCUSATE 100 MG CAPSULE PO (08:47)
[2022-03-26] MEDS: AMLODIPINE 5 MG TABLET PO (08:47)
[2022-03-26 09:10] VITALS: BP 114/74; PULSE 84; RESP 18; TEMP 36.6; O2SAT 95
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
--- NOTE | 2022-03-26 11:04 | CM.DANOTE ---
DCP Assessment: Payor confirmed: Medicare & for life PCP confirmed: Monica Hensley MD Pt is a 71 y.o. M who presented to the hospital for a planned right total shoulder surgery with Dr. Celeste on 03/25/22. Pt admitted to the AC unit for post surgical management. DCP met with pt this morning to discuss discharge needs. Pt sitting up in chair. DCP introduced self and role. Pt states that he lives with his spouse, Isabel, in [place]. Pt states he is independent at baseline and denies any DME use. Pt states he still drives POV. Pt to work with PT today and if cleared, anticipate discharge today. Pt will be picking pt up from hospital upon discharge. Whiteboard updated and instructed to call if needed. Pt thankful for discussion. P: Once pt medically clear for discharge, pt to discharge home via spouse POV. Shyanne Alberts RN/CHARLIE Discharge Planning/Care Management CM Discharge Assessment Start: 03/26/22 08:57 Freq: Status: Active Protocol: Document 03/26/22 09:28 DISHA (Rec: 03/26/22 09:28 AJ [id number]) Discharge Planning Assessment Assigned Machine Turner Shyanne Alberts RN/CHARLIE Advance Directives? Yes Advance Directives on File No: Spouse will provide History Provided By Patient,Medical Record Prior Living Arrangements House Household Members spouse Type of transporation used prior to Drives own vehicle admit Independent with ADL's Yes Is patient alert and oriented? Yes Caregiver for Another No Discharge Plan Home Transportation Arrangement Spouse Referrals Initiated None needed Whiteboard Updated in Patient Room with Yes name and ext. # of Machine Turner Comment Instructed to call if needed. Review Status In Process Please Provide Date Initial DC 03/26/22 Assessment Was Performed Next Review Type Continued Stay Review Pre-Anesthesia Assessment Start: 03/17/22 12:28 Freq: Status: Complete Protocol: Document 03/17/22 12:28 CAB (Rec: 03/17/22 13:32 CAB [id number]) Pre-Anesthesia Assessment Preferred Name Bishnu Patient Information Reviewed Via Phone Assessment Assessment Completed With Patient Diagnostic Results BMP/CMP,CBC,EKG Comment Labs/ECG @ [facility] 03/02/22, COVID screen @ [facility] 03/24/22 Primary Care Provider Monica Hensley Seen Specialist in Last 12 Months Yes Specialist Seen Orthopedist Primary Language Vietnamese Preferred Language Vietnamese Height 176.53 cm Weight 84.822 kg Body Mass Index (BMI) 27.2 Hearing Ability Hard of Hearing,Use of Hearing Aid Visual Assist Glasses Dentition Type Teeth, Natural Present Barriers to Learning None Hx Anesthesia Reactions Yes: Continuous vomiting s/p appendectomy 1960, no subsequent issues Additional comment IRA, mild per pt, intolerant to CPAP Hx Family Anesthesia Reaction No Hx Malignant Hyperthermia No Hx Blood Transfusions No Hx Blood Transfusion Reaction No Anesthesia Review Requested Yes: PAC courtesy re: Abnormal pre-op ECG Senior Writer No alcohol intake current alcohol intake frequency a few times a month Smoking Status Never smoker Substance Use Type does not use Pain Present Pain Reported Musculoskeletal Symptoms Back Pain,Joint Pain,Limited Range of Motion History of Falling (Recent or History of No ) Patient is completely paralyzed or No completely immobile Mental Status Oriented to own ability Is patient on oxygen? No Does patient have JAMES/SOB No Hx Sleep Apnea Yes: Intolerant to CPAP CPAP/BIPAP use prescribed not used Currently Taking a Beta Kat No Can You Climb a Flight of Stairs Without Yes SOB Hx Chest Pain No Hx SOB No Hx Syncope or Dizziness Yes: Syncope left hip surgery '16 r/t anemia Anti-Coagulant Therapy No Has a Interlocking And Signal Mechanic No Cardiac Testing No Hx Pacemaker/ICD No Pacemaker Rep Required? No Diet Type At Home Regular dysphagia No Gastrointestinal Symptoms Reflux Bladder Pattern Frequency,Urgency Urinary Catheter Present No Hx Urinary Self Catheterization No Diabetes No: Pre-diabetes Hx Drug Resistant Organism No Presence of External or Internal Medical Yes: Bilat hip, left shoulder Devices prosthesis Have you had any close contact with No someone diagnosed with COVID-19? Received a COVID vaccine? Yes Received all doses? Yes Marital Status Lives With spouse Prior Living Arrangements House Number of Floors (Floors) Two Floors Support System Spouse Does the Patient Have Assistance After Yes Surgery Patient Discharge Plan Description Return Home Comment Pt not advised on length of stay per surgeon Feels Safe in Current Environment Yes Been Physically Hurt or Threatened By a No Person in Current Environment Do you have thoughts of harming yourself None or others? Are you currently considering suicide? No Do you have a plan to hurt yourself or No Plan others? Do You Have Any Spiritual Beliefs That No May Affect Your HC Choices? Do You Have Any Cultural Practices That No May Affect Your HC Choices? Comment Taoism Who Can We Speak to About Patient's Care Family, friends Identifying Code for Release of Patient Declines to issue Information Health Care Proxy/Next of Kin Irasema () Health Care Proxy Emergency Contact Name Irasema () Emergency Contact Advance Directives? Yes Advance Directives on File No: Spouse will provide Power of Field Support Representative Yes Power of Field Support Representative Name Irasema () Power of Field Support Representative PAC Instructions Medications to take/avoid, Nasal antibiotic,No ETOH/ petroleum product on skin DOS, NPO,Post-op transportation,Pre -surgical wash,Sensory aids, Sturdy shoes/comfortable clothes,Do not bring valuables and remove jewelry
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
[2022-03-26] MEDS: ACETAMINOPHEN 325 MG TABLET 650 MG PO (11:43)
== END 2022-03-26 13:09 | disposition home or self-care (01) ==
LOC: OR 06:02 → AC 06:02
PROVIDERS: PCP Physician Assistant Medical; Referring Provider Physical Medicine & Rehabilitation Pain Medicine; Visit Provider Orthopaedic Surgery
PROC: 0RQJ0ZZ Repair Right Shoulder Joint, Open Approach (ICD-10-PCS; CPT 23472; principal; 2022-03-25 07:45)
DX: M19.011 Primary osteoarthritis, right shoulder (principal); M25.711 Osteophyte, right shoulder; I10 Essential (primary) hypertension; G47.33 Obstructive sleep apnea (adult) (pediatric)
CPT/HCPCS: 23470; 36415; 64450; 73030; 85027; 97110; 97162; 97530; C1776; A9270; C1713; J0171; J1100; J2250; J2405; J2704; J3010

== ENCOUNTER 2023-05-09 09:16 | Emergency (ER) | payer MEDICARE, OTHER, SELFPAY ==
[2022-03-25 11:46] VITALS: BMI 27.8
[2023-05-09 09:44] VITALS: BP 146/84; PULSE 73; RESP 16; TEMP 36.6; O2SAT 97; BMI 28.0
--- NOTE | 2023-05-09 10:59 | DI.US.S_ITS ---
PROCEDURE: US ABDOMEN LIMITED INDICATIONS: RIGHT GROIN LUMP AND PAIN - please evaluate for HERNIA TECHNIQUE: Real-time focused scanning was performed of the abdomen, with image documentation. COMPARISON: None. FINDINGS: Within the right groin, there is a 2.5 cm hernia defect. This hernia contains fat and bowel. There is free motion with Valsalva. IMPRESSION: Right groin hernia, which contains fat and bowel. Dictated by: Jason Fitzgerald M.D. on 05/09/2023 at 10:53 Approved by: Jason Fitzgerald M.D. on 05/09/2023 at 10:54
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
[2023-05-09 12:43] VITALS: BP 141/81; PULSE 67; RESP 14; O2SAT 96
== END 2023-05-09 12:46 | disposition home or self-care (01) ==
PROVIDERS: Emergency Provider Student in an Organized Health Care Education/Training Program; PCP Physician Assistant Medical
DX: K40.90 Unilateral inguinal hernia, without obstruction or gangrene, not specified as recurrent (principal)
CPT/HCPCS: 76705; 99281; 99283

== ENCOUNTER → 2023-11-07 07:54 | Outpatient (CLI) | payer MEDICARE, OTHER, SELFPAY ==
[2022-03-25 11:46] VITALS: BMI 27.8
--- NOTE | 2023-11-07 07:57 | DI.RAD.S_ITS ---
PROCEDURE: XR RIBS LT MIN 3V W CXR1V INDICATIONS: Left lower rib pain x 5 days TECHNIQUE: 3 views of the ribs were acquired, along with a single view chest. COMPARISON: None. FINDINGS: Surgical changes and devices: Partially visualized bilateral shoulder arthroplasties. Bones and chest wall: No fractures or dislocations. No suspicious bony lesions. Overlying soft tissues appear unremarkable. Lungs and pleura: No pleural effusions or pneumothorax. Lungs appear clear. Mediastinum: Mediastinal contours appear normal. Heart size is normal. IMPRESSION: No visualized acute fracture or dislocation. However, if clinical concern and/or pain persist, short interval imaging followup in 7-10 days is recommended, as occult injury cannot be definitively excluded. Dictated by: Erendira Lozano M.D. on 11/07/2023 at 11:17 Approved by: Erendira Lozano M.D. on 11/07/2023 at 11:17
== END ==
PROVIDERS: PCP Physician Assistant Medical; Referring Provider Physician Assistant; Visit Provider Physician Assistant
DX: R07.81 Pleurodynia (principal); Z96.612 Presence of left artificial shoulder joint; Z96.611 Presence of right artificial shoulder joint
CPT/HCPCS: 71101

== ENCOUNTER → 2024-03-09 11:22 | Outpatient (CLI) | payer OTHER, SELFPAY ==
[2022-03-25 11:46] VITALS: BMI 27.8
[2024-03-09 12:24] LABS: Alanine Aminotransferase 29 IU/L (<50); Albumin 4.1 g/dL (3.5-5.0); Albumin Globulin Ratio 2.1 (1.0-2.8); Alkaline Phosphatase 98 U/L (38-126); Aspartate Aminotransferase 36 IU/L (17-59); BUN Creatinine Ratio 22.1 (6-22); Bilirubin Total 1.1 mg/dL (0.2-1.3); Blood Urea Nitrogen 23 mg/dL (9-20); Carbon Dioxide 25 mmol/L (22-32); Chloride 108 mmol/L (98-107); Estimated Glomerular Filt Rate > 60 mL/min (>60); Glucose 89 mg/dL (80-110); HEMOLYSIS < 15 (0-50); Potassium 4.2 mmol/L (3.4-5.1); Sodium 138 mmol/L (137-145); Total Protein 6.1 g/dL (6.3-8.2)
[2024-03-09 13:11] LABS: Appearance Urine UA CLEAR; Bilirubin Urine UA NEGATIVE (NEGATIVE); Color Urine UA YELLOW; Glucose Urine UA NEGATIVE (Negative); Ketones Urine UA NEGATIVE (NEGATIVE); Leukocyte Esterase Urine UA NEGATIVE (NEGATIVE); Nitrite Urine UA NEGATIVE (Negative); Occult Blood Urine UA NEGATIVE (Negative); Protein Urine UA NEGATIVE (Negative); Specific Gravity Urine UA 1.025 (1.000-1.035); Urobilinogen Urine UA 0.2 E.U./dL (0.2); pH Urine UA 5.5 (4.5-8.0)
[2024-03-09 13:40] LABS: Bacteria Urine None Seen; Culture Indicated Urine Cult Not Indicated; RBC Urine None Seen (0-5/HPF); Squamous Epithelial Cell Urine None Seen (0-5/HPF); Urine Volume 10mL (spun); WBC Urine 0-1/HPF (0-5/HPF)
== END ==
PROVIDERS: PCP Physician Assistant Medical; Referring Provider Chiropractor; Visit Provider Chiropractor
DX: N18.9 Chronic kidney disease, unspecified (principal)
CPT/HCPCS: 36415; 80053; 81001